=== PATIENT | female | born 1985 | race Caucasian/White ===

== ENCOUNTER 2017-07-10 08:42 | Emergency (ER) | payer BC ==
[~2017-07-10] VITALS: Ht 149.9 cm; Wt 86.9 kg
[~2017-07-10 08:42] MED LIST: Colace PO; FLAGYL500 MG PO; Motrin PO; Natalcare Rx,Pramile PO; PRENATAL TABLE1 EAC3 PO; Percocet 5/325,Endoc PO; TYLENOL325 M2 PO; Tylenol PM PO; VIBRAMYCIN100 MG PO; ZOFRAN4 MG PO; Zantac PO
[2017-07-10 09:45] LABS: BASOPHIL (%) 0.3 % (0-1); EOSINOPHIL (%) 0.5 % (0-5); EOSINOPHIL COUNT 0.1 K/uL (0-0.3); HEMATOCRIT 35.9 % (36.0-46.0); HEMOGLOBIN 12.3 G/DL (11.9-15.5); IMMATURE GRANULOCYTE (%) 0.7 % (0.0-0.7); LYMPHOCYTE COUNT 1.3 K/uL (1.0-2.8); MCH 30.2 PG (29.0-34.0); MCHC 34.3 G/DL (30.0-36.0); MCV 88.2 FL (83-99); MONOCYTE (%) 5.5 % (3-12); MONOCYTE COUNT 0.5 K/uL (0-0.8); NEUTROPHIL COUNT 7.5 K/uL (1.8-6.4); PLATELET COUNT 268 K/uL (156-360); RBC DIS.WIDTH-CV 12.6 % (11.8-14.6); RED BLOOD COUNT 4.07 M/uL (3.80-5.20); WHITE BLOOD COUNT 9.4 K/uL (4.1-10.2)
[2017-07-10 09:56] LABS: CHLORIDE 106 mEq/L (99-109); SODIUM 137 mEq/L (136-147)
[2017-07-10 09:58] LABS: GLUCOSE 90 mg/dL (70-99)
[2017-07-10 10:02] LABS: CREATININE 0.6 mg/dL (0.6-1.3); GFR ESTIMATE (CALCULATED) > 59 mL/min/
[2017-07-10 10:03] LABS: UREA NITROGEN (BUN) 8 mg/dL (9-23)
[2017-07-10 10:28] LABS: QUANTITATIVE HCG 63402.7 MIU/ML
[2017-07-10 12:14] VITALS: BP 123/68
== END 2017-07-10 12:22 | disposition home or self-care (01) ==
LOC: EME 08:42
PROVIDERS: Emergency Medicine
DX: O9A.211 Injury, poisoning and certain other consequences of external causes complicating pregnancy, first trimester (principal); S09.90XA Unspecified injury of head, initial encounter; R55 Syncope and collapse; W18.12XA Fall from or off toilet with subsequent striking against object, initial encounter; Y93.89 Activity, other specified; Z3A.10 10 weeks gestation of pregnancy; O99.341 Other mental disorders complicating pregnancy, first trimester; F31.9 Bipolar disorder, unspecified
CPT/HCPCS: 70450; 76801; 80048; 84702; 85025; 93005; 99281; 99284

== ENCOUNTER 2017-10-20 17:40 | Outpatient (CLI) | payer BC, OTHER ==
[~2017-10-20] VITALS: Ht 149.9 cm; Wt 91.4 kg
[2017-10-20] MEDS ORDERED: STOOL SOFTENER100 M1 PO (18:12)
[2017-10-20] MEDS ORDERED: SERTRALINE HCL50 MG PO (18:12)
[2017-10-20 18:13] VITALS: BP 118/69
== END 2017-10-20 19:00 | disposition home or self-care (01) ==
LOC: LDRP-OP 17:40 → 2WEST 17:41
DX: O26.893 Other specified pregnancy related conditions, third trimester (principal); R42 Dizziness and giddiness; Z3A.24 24 weeks gestation of pregnancy; Z87.891 Personal history of nicotine dependence
CPT/HCPCS: 59025; G0378